=== PATIENT | male | born 1955 | race Caucasian/White ===

== ENCOUNTER 2017-03-02 18:35 | Emergency (ER) | payer OTHER ==
[2017-03-02 18:51] VITALS: BP 138/64; PULSE 90; TEMP 98.1; BMI 28.7
--- NOTE | 2017-03-02 19:15 | PDOC ---
History of Present Illness - General History Source: Patient Exam Limitations: No Limitations - History of Present Illness Initial Comments: 03/02/17 19:23 The patient is a 61 year old male, with a significant past medical history of hypothyroidism (on Synthroid 75mcg daily), dependencies of opacities and k2, Hepatitis C, depression, and asthma, who presents to the emergency department with increasing pain and swelling to his left index finger secondary to getting it crushed in an escalator 2.5 weeks ago. The patient states that he feels as if his finger feels like it is going to explode. As per EMS the pain in his finger is a throbbing and pressure in sensation in nature and is having chills. 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 [employer] Allergies:Ciprofloxacin, Ciprofloxacin HCl, Penicillins, Fish containing products Past surgical history: Cholecystectomy (09/2013) Social history: Current everyday smoker (5 cigarettes per day), Heroin and Marijuana use <Sharron Lockhart - Last Filed: 03/02/17 19:23> <Lukas Kimball - Last Filed: 03/03/17 03:41> - General Chief Complaint: Pain, Acute Stated Complaint: PAIN TO LEFT INDEX FINGER Time Seen by Provider: 03/02/17 19:15 Past History <Sharron Lockhart - Last Filed: 03/02/17 19:23> - Past Medical History Anemia: No Asthma: Yes (no using the resque inhalants ) Cancer: No Cardiac Disorders: No CVA: No COPD: No CHF: No Dementia: No Diabetes: No GI Disorders: No Disorders: No HTN: No Hypercholesterolemia: No Kidney Stones: No Liver Disease: No Suicide Attempt (Hx): No Seizures: No Thyroid Disease: No - Surgical History Abdominal Surgery: No Appendectomy: No Cardiac Surgery: No Cholecystectomy: Yes (09/2013) Lung Surgery: No Neurologic Surgery: No Orthopedic Surgery: No - Reproductive History Testicular Surgery: No - Psycho/Social/Smoking Cessation Hx Anxiety: No Suicidal Ideation: No Smoking History: Current every day smoker Have you smoked in the past 12 months: Yes Number of Cigarettes Smoked Daily: 5 Information on smoking cessation initiated: Yes 'Breaking Loose' booklet given: 03/02/17 Hx Alcohol Use: No Drug/Substance Use Hx: Yes (H/O HEROIN AND MARIJUANA) Substance Use Type: Heroin, Marijuana Hx Substance Use Treatment: Yes <Lukas Kimball - Last Filed: 03/03/17 03:41> - Past Medical History Allergies/Adverse Reactions: Allergies Allergy/AdvReac Type Severity Reaction Status Date / Time ciprofloxacin [From Cipro] AdvReac Rash Verified 03/02/17 18:38 ciprofloxacin HCl AdvReac Rash Verified 03/02/17 18:38 [From Cipro] Fish Containing Products AdvReac Rash Verified 03/02/17 18:38 Penicillins AdvReac Difficulty Verified 03/02/17 18:38 Breathing Home Medications: Ambulatory Orders Levothyroxine [Synthroid -] 75 mcg PO DAILY 09/01/14 Clindamycin [Cleocin -] 300 mg PO Q6H #40 capsule 03/02/17 Review of Systems - Review of Systems Able to Perform ROS?: Yes Comments:: 03/02/17 19:24 GENERAL/CONSTITUTIONAL: +chills No fever. No weakness. HEAD, EYES, EARS, NOSE AND THROAT: No change in vision. No ear pain or discharge. No sore throat. CARDIOVASCULAR: No chest pain or shortness of breath. RESPIRATORY: No cough, wheezing, or hemoptysis. GASTROINTESTINAL: No nausea, vomiting, diarrhea or constipation. GENITOURINARY: No dysuria, frequency, or change in urination. MUSCULOSKELETAL: +Pain and swelling to left index finger No neck or back pain. SKIN: No rash NEUROLOGIC: No headache, vertigo, loss of consciousness, or change in strength/ sensation. ENDOCRINE: No increased thirst. No abnormal weight change. HEMATOLOGIC/LYMPHATIC: No anemia, easy bleeding, or history of blood clots. ALLERGIC/IMMUNOLOGIC: No hives or skin allergy. <Sharron Lockhart - Last Filed: 03/02/17 19:23> *Physical Exam - Vital Signs Last Vital Signs Temp Pulse Resp BP Pulse Ox 98.1 F 90 20 138/64 99 03/02/17 18:37 03/02/17 18:37 03/02/17 18:37 03/02/17 18:37 03/02/17 18:37 - Physical Exam Comments: 03/02/17 19:24 GENERAL: Awake, alert, and fully oriented, in no acute distress HEAD: No signs of trauma EYES: PERRLA, EOMI, sclera anicteric, conjunctiva clear ENT: Auricles normal inspection, hearing grossly normal, nares patent, oropharynx clear without exudates. Moist mucosa NECK: Normal ROM, supple, no lymphadenopathy, JVD, or masses LUNGS: Breath sounds equal, clear to auscultation bilaterally. No wheezes, and no crackles HEART: Regular rate and rhythm, normal S1 and S2, no murmurs, rubs or gallops ABDOMEN: Soft, nontender, normoactive bowel sounds. No guarding, no rebound. No masses EXTREMITIES: +Felon left index finger Normal range of motion. No cords. NEUROLOGICAL: Cranial nerves II through XII grossly intact. Normal speech, normal gait SKIN: Warm, Dry, normal turgor, no rashes or lesions noted. <Sharron Lockhart - Last Filed: 03/02/17 19:23> - Vital Signs Last Vital Signs Temp Pulse Resp BP Pulse Ox 98.1 F 90 20 138/64 99 03/02/17 18:37 03/02/17 18:37 03/02/17 18:37 03/02/17 18:37 03/02/17 18:37 <Lukas Kimball - Last Filed: 03/03/17 03:41> Medical Decision Making - Medical Decision Making 03/03/17 03:39 felon on L index finger soaked in H2O2 incision made along existing scabe on volar surface only scant pus return packed, dressed a/p felon/ cellulitis abx packing out 36 hours <Lukas Kimball - Last Filed: 03/03/17 03:41> *DC/Admit/Observation/Transfer - Attestations Scribe Attestion: 03/02/17 19:25 Documentation prepared by J LUIS Beckman, acting as medical receptionist for Lukas Kimball MD. <Sharron Lockhart - Last Filed: 03/02/17 19:23> <Lukas Kimball - Last Filed: 03/03/17 03:41> Diagnosis at time of Disposition: Felon of finger of left hand - Discharge Dispostion Disposition: HOME Condition at time of disposition: Stable - Prescriptions Prescriptions: Clindamycin [Cleocin -] 300 mg PO Q6H #40 capsule - Patient Instructions Printed Discharge Instructions: DI for Incision and Drainage Additional Instructions: Take motrin as for pain. We left a piece of gauze inside your finger. That should come out Friday. See a doctor then. Fill your antibiotic prescription and take the antibiotics every 6 hours.
[2017-03-02] MEDS ORDERED: LIDOCAINE HCL 2% (20ML MULTI-DOSE VIAL) NR ONE (19:23)
[2017-03-02] MEDS ORDERED: CLINDAMYCIN HCL 150 MG CAPSULE (FP) PO ONE (19:47)
[2017-03-02] MEDS ORDERED: CLINDAMYCIN HCL 150 MG CAPSULE (FP) ONE (19:49)
== END 2017-03-02 20:00 | disposition home or self-care (01) ==
LOC: FER 18:35
PROC: 0H9GXZZ Drainage of Left Hand Skin, External Approach (ICD-10-PCS; principal; 2017-03-02)
DX: L03.012 Cellulitis of left finger (principal); E03.9 Hypothyroidism, unspecified; F11.20 Opioid dependence, uncomplicated; F12.20 Cannabis dependence, uncomplicated; F17.210 Nicotine dependence, cigarettes, uncomplicated; B18.2 Chronic viral hepatitis C; F32.9 Major depressive disorder, single episode, unspecified; J45.909 Unspecified asthma, uncomplicated
CPT/HCPCS: 26010; 99283-25

== ENCOUNTER 2017-03-21 09:05 | Inpatient (IN) | payer OTHER ==
[2017-03-21 11:09] VITALS: BMI 22.3
--- NOTE | 2017-03-21 14:28 | HP ---
COWS - Scale Resting Pulse: 0= [place] 80 or Below Sweatin=Flushed/Facial Moisture Restless Observation: 3= Extraneous Movement Pupil Size: 2= Moderately Dilated Bone or Joint Aches: 2= Severe Diffuse Aches Runny Nose/ Eye Tearin= Runny Nose/Eyes GI Upset > 30mins: 2= Nausea/Diarrhea Tremor Observation: 2= Slight Tremor Visible Yawning Observation: 1= 1-2x During Session Anxiety or Irritability: 2=Irritable/Anxious Goose Flesh Skin: 0=Smooth Skin COWS Score: 18 Admission ROS S - [facility] Chief Complaint: Withdrawal sx. Allergies/Adverse Reactions: Allergies Allergy/AdvReac Type Severity Reaction Status Date / Time ciprofloxacin [From Cipro] AdvReac Rash Verified 03/21/17 13:37 ciprofloxacin HCl AdvReac Rash Verified 03/21/17 13:37 [From Cipro] Fish Containing Products AdvReac Rash Verified 03/21/17 13:37 Penicillins AdvReac Difficulty Verified 03/21/17 13:37 Breathing History of Present Illness: 61 y/o man with a long hx. of drug dependence is admitted for detox. Pt. has been in previous detox,denies significant period drug free. Exam Limitations: No Limitations - Ebola screening Have you traveled outside of the country in the last 21 days: No Have you had contact with anyone from an Ebola affected area: No Have you been sick,other than usual withdrawal symptoms: No Do you have a fever: No - Review of Systems Constitutional: Diaphoresis EENT: reports: Nose Congestion Respiratory: reports: No Symptoms reported Cardiac: reports: No Symptoms Reported GI: reports: Diarrhea, Nausea, Abdominal cramping : reports: No Symptoms Reported Musculoskeletal: reports: Back Pain, Joint Pain, Muscle Pain Integumentary: reports: Sweating Neuro: reports: Tingling, Tremors Endocrine: reports: No Symptoms Reported Hematology: reports: No Symptoms Reported Psychiatric: reports: No Sypmtoms Reported Other Systems: Reviewed and Negative Patient History - Patient Medical History Hx Anemia: No Hx Asthma: Yes Hx Chronic Obstructive Pulmonary Disease (COPD): Yes Hx Cancer: No Hx Cardiac Disorders: No Hx Congestive Heart Failure: No Hx Hypertension: No Hx Hypercholesterolemia: No Hx Pacemaker: No HX Cerebrovascular Accident: No Hx Seizures: No Hx Dementia: No Hx Diabetes: No Hx Gastrointestinal Disorders: No Hx Liver Disease: No Hx Genitourinary Disorders: No Hx Sexually Transmitted Disorders: No Hx Renal Disease (ESRD): No Hx Thyroid Disease: No Hx Human Immunodeficiency Virus (HIV): No Hx Hepatitis C: Yes (No tx. needed) Hx Depression: Yes Hx Suicide Attempt: No Hx Bipolar Disorder: No Hx Schizophrenia: No - Patient Surgical History Past Surgical History: No Hx Neurologic Surgery: No Hx Cataract Extraction: No Hx Cardiac Surgery: No Hx Lung Surgery: No Hx Breast Surgery: No Hx Breast Biopsy: No Hx Abdominal Surgery: No Hx Appendectomy: No Hx Cholecystectomy: Yes (09/2013) Hx Genitourinary Surgery: No Hx Section: No Hx Orthopedic Surgery: Yes (L index fingertip.03/02/17 at [facility]/[place]) Anesthesia Reaction: No - PPD History Previous Implant?: Yes Documented Results: Positive w/o proof Implanted On Prior [facility] Admission?: No Results: positive PPD to be Administered?: No - Smoking Cessation Smoking history: Current every day smoker Have you smoked in the past 12 months: Yes Aproximately how many cigarettes per day: 20 Hx Chewing Tobacco Use: No Initiated information on smoking cessation: Yes 'Breaking Loose' booklet given: 03/21/17 - Substance & Tx. History Hx Alcohol Use: No Hx Substance Use: Yes Substance Use Type: Heroin Hx Substance Use Treatment: Yes (detox) - Substances Abused Heroin Route: Injection Frequency: Daily Amount used: 10 bags Age of first use: 61 Date of Last Use: 03/20/17 Family Disease History - Family Disease History Family Disease History: Diabetes: Grandparent (all alcohol dependence), Mother, Sister, Son, Heart Disease: Mother, CA: Mother, Respiratory: Grandparent, Other : Grandparent, Father, Mother, Brother, Sister, Son, Daughter Admission Physical Exam BHS - Vital Signs Vital Signs: Vital Signs - 24 hr 03/21/17 11:07 Temperature 97.7 F Pulse Rate 74 Respiratory 20 Rate Blood Pressure 125/75 - Physical General Appearance: Yes: Irritable, Sweating, Anxious HEENTM: Yes: Nasal Congestion, Rhinorrhea Respiratory: Yes: Chest Non-Tender, Lungs Clear, Normal Breath Sounds Neck: Yes: Supple Breast: Yes: Breast Exam Deferred Cardiology: Yes: Regular Rhythm, Regular Rate, S1, S2 Abdominal: Yes: Normal Bowel Sounds, Non Tender, Soft Genitourinary: Yes: Within Normal Limits Back: Yes: Within Normal Limits Musculoskeletal: Yes: full range of Motion Extremities: Yes: Tremors Neurological: Yes: Fully Oriented, Alert Integumentary: Yes: Diaphoresis Lymphatic: Yes: Within Normal Limits - Diagnostic (1) Opioid dependence with withdrawal Current Visit: Yes Status: Acute (2) Asthma with COPD Current Visit: Yes Status: Chronic (3) Cannabis dependence Current Visit: Yes Status: Chronic (4) Hypothyroidism Current Visit: Yes Status: Acute Qualifiers: Hypothyroidism type: acquired Qualified Code(s): E03.9 - Hypothyroidism, unspecified (5) Amputation of left index finger Current Visit: Yes Status: Acute Comment: distal tip Cleared for Admission [facility] - Detox or Rehab [facility] Level of Care: Medically Managed Detox Regimen/Protocol: Methadone [facility] Breath Alcohol Content Breath Alcohol Content: 0 Urine Drug Screen - Results Drug Screen Negative: No Urine Drug Screen Results: THC-Marijuana, OPI-Opiates
[2017-03-21] MEDS ORDERED: diphenhydrAMINE HCL 50 MG CAPSULE PO PRN (14:49)
[2017-03-21] MEDS ORDERED: P-EPHED 60MG/TRIPROLIDI 2.5MG TABLET PO PRN (14:49)
[2017-03-21] MEDS ORDERED: LOPERAMIDE HCL 2 MG CAPSULE PO PRN (14:49)
[2017-03-21] MEDS ORDERED: MAG HYDROX/AL HYDROX/SIMETH 30 ML UNIT-DOSE CUP PO PRN (14:49)
[2017-03-21] MEDS ORDERED: MENTHOL/PHENOL 1 EACH UD MM PRN (14:49)
[2017-03-21] MEDS ORDERED: NICOTINE POLACRILEX 2 MG GUM BUC PRN (14:49)
[2017-03-21] MEDS ORDERED: guaiFENesin/D-METHORPHAN HB 10 ML UNIT-DOSE CUPS PO PRN (14:49)
[2017-03-21] MEDS ORDERED: MAGNESIUM CITRATE 300 ML BOTTLE PO PRN (14:49)
[2017-03-21] MEDS ORDERED: MAGNESIUM HYDROX 2400MG/30ML ORAL SUSPENSION 30 ML CUP PO PRN (14:49)
[2017-03-21] MEDS ORDERED: LEVOTHYROXINE NA 150 MCG TABLET PO SCH (15:00)
[2017-03-21] MEDS ORDERED: cloNIDine HCL 0.1 MG TABLET PO ONE (15:20)
[2017-03-21] MEDS ORDERED: METHADONE HCL 10 MG TABLET (FOR DETOX USE ONLY) PO ONE ×2 (15:21→23:00)
[2017-03-21] MEDS ORDERED: LEVOTHYROXINE NA 100 MCG TABLET (FP) ONE (15:45)
[2017-03-21] MEDS ORDERED: LEVOTHYROXINE NA 25 MCG TABLET (FP) ONE (15:45)
[2017-03-21] MEDS: diazePAM 5 MG TABLET PO PRN ×2 (15:48→22:29)
[2017-03-21] MEDS: LEVOTHYROXINE 100 MCG, LEVOTHYROXINE 50 MCG PO SCH (15:48)
[2017-03-21] MEDS: NICOTINE 21 MG/24 HOURS TOPICAL PATCH TD SCH (15:49)
[2017-03-21] MEDS: CYCLOBENZAPRINE HCL 10 MG TABLET (FP) PO SCH ×2 (15:49→22:29)
[2017-03-21 20:15] LABS: URINE APPEARANCE CLEAR; URINE BILIRUBIN NEGATIVE (NEGATIVE); URINE BLOOD NEGATIVE (NEGATIVE); URINE COLOR YELLOW; URINE GLUCOSE (UA) NEGATIVE (NEGATIVE); URINE KETONE NEGATIVE (NEGATIVE); URINE LEUK ESTERASE NEGATIVE (NEGATIVE); URINE NITRITE NEGATIVE (NEGATIVE); URINE PROTEIN NEGATIVE (NEGATIVE); URINE UROBILINOGEN NEGATIVE E.U./dl (0.2-1.0)
[2017-03-21] MEDS: IBUPROFEN 400 MG TABLET (FP) PO PRN (20:30)
[2017-03-21] MEDS: THIAMINE HCL 100 MG TABLET (FP) PO SCH (22:28)
[2017-03-21] MEDS: cloNIDine HCL 0.1 MG TABLET PO SCH (22:29)
[2017-03-22] MEDS ORDERED: LEVOTHYROXINE NA 25 MCG TABLET (FP) ONE (05:18)
[2017-03-22] MEDS ORDERED: LEVOTHYROXINE NA 100 MCG TABLET (FP) ONE (05:18)
[2017-03-22] MEDS: diazePAM 5 MG TABLET PO PRN ×4 (06:03→22:44)
[2017-03-22] MEDS: LEVOTHYROXINE 100 MCG, LEVOTHYROXINE 50 MCG PO SCH (06:04)
[2017-03-22] MEDS: CYCLOBENZAPRINE HCL 10 MG TABLET (FP) PO SCH ×3 (06:04→22:45)
[2017-03-22] MEDS ORDERED: METHADONE HCL 10 MG TABLET (FOR DETOX USE ONLY) PO ONE (10:00)
[2017-03-22] MEDS: PRENATAL VITAMINS W/ FOLIC ACID TABLET (FP) PO SCH (10:30)
[2017-03-22] MEDS: cloNIDine HCL 0.1 MG TABLET PO SCH ×2 (10:30→22:45)
[2017-03-22] MEDS: NICOTINE 21 MG/24 HOURS TOPICAL PATCH TD SCH (10:31)
[2017-03-22 10:47] LABS: MCH 30.3 pg (25.7-33.7); MCHC 33.6 g/dl (32.0-35.9); MEAN CELL VOLUME 90.3 fl (80-96); MEAN PLT VOLUME 8.4 fl (7.5-11.1); PLATELET COUNT 221 K/MM3 (134-434); WHITE BLOOD COUNT 5.4 K/mm3 (4.0-10.0)
[2017-03-22 10:48] LABS: ALBUMIN 3.5 g/dl (3.4-5.0); ANION GAP 7 (8-16); CO2 28 mmol/L (21-32); GLUCOSE,RANDOM 94 mg/dL (74-106); SGOT/AST 20 U/L (15-37); SGPT/ALT 17 U/L (12-78)
[2017-03-22 10:59] LABS: ALK PHOS 72 U/L (45-117); BILIRUBIN,TOTAL 0.3 mg/dL (0.2-1.0); CALCIUM 9.1 mg/dL (8.5-10.1); COCKROFT - GAULT 106.87; CREATININE 0.8 mg/dL (0.7-1.3); TOT PROT 6.2 g/dl (6.4-8.2)
[2017-03-22] MEDS: ACETAMINOPHEN 325 MG TABLET (FP) PO PRN (12:54)
--- NOTE | 2017-03-22 13:44 | PN ---
S COWS - Scale Resting Pulse: 0= [place] 80 or Below Sweatin=Flushed/Facial Moisture Restless Observation: 3= Extraneous Movement Pupil Size: 0= Normal to Room Light Bone or Joint Aches: 2= Severe Diffuse Aches Runny Nose/ Eye Tearin= Nasal Congestion GI Upset > 30mins: 1= Stomach Cramp Tremor Observation of Outstretched Hands: 2= Slight Tremor Visible Yawning Observation: 1= 1-2x During Session Anxiety or Irritability: 2=Irritable/Anxious Goose Flesh Skin: 3=Piloerection COWS Score: 17 BHS Progress Note (SOAP) Subjective: anxiety, irritability,sweats and painful left index finger Objective: 03/22/17 13:42 Vital Signs - 8 hr 03/22/17 03/22/17 06:32 10:31 Temperature 96.1 F L 95.8 F L Pulse Rate 63 87 Respiratory 20 20 Rate Blood Pressure 143/83 123/76 Laboratory Last Values WBC 5.4 K/mm3 (4.0-10.0) D 03/22/17 06:00 RBC 4.32 M/mm3 (4.00-5.60) 03/22/17 06:00 Hgb 13.1 GM/dL (11.7-16.9) D 03/22/17 06:00 Hct 39.0 % (35.4-49) D 03/22/17 06:00 MCV 90.3 fl (80-96) 03/22/17 06:00 MCHC 33.6 g/dl (32.0-35.9) 03/22/17 06:00 RDW 16.0 % (11.9-15.9) H 03/22/17 06:00 Plt Count 221 K/MM3 (134-434) 03/22/17 06:00 MPV 8.4 fl (7.5-11.1) 03/22/17 06:00 Sodium 140 mmol/L (136-145) 03/22/17 06:00 Potassium 4.5 mmol/L (3.5-5.1) 03/22/17 06:00 Chloride 105 mmol/L (98-107) 03/22/17 06:00 Carbon Dioxide 28 mmol/L (21-32) 03/22/17 06:00 Anion Gap 7 (8-16) L 03/22/17 06:00 BUN 20 mg/dL (7-18) H D 03/22/17 06:00 Creatinine 0.8 mg/dL (0.7-1.3) 03/22/17 06:00 Creat Clearance w eGFR > 60 (>60) 03/22/17 06:00 Random Glucose 94 mg/dL (74-106) 03/22/17 06:00 Calcium 9.1 mg/dL (8.5-10.1) 03/22/17 06:00 Total Bilirubin 0.3 mg/dL (0.2-1.0) D 03/22/17 06:00 AST 20 U/L (15-37) 03/22/17 06:00 ALT 17 U/L (12-78) 03/22/17 06:00 Alkaline Phosphatase 72 U/L (45-117) D 03/22/17 06:00 Total Protein 6.2 g/dl (6.4-8.2) L 03/22/17 06:00 Albumin 3.5 g/dl (3.4-5.0) 03/22/17 06:00 Urine Color Yellow 03/21/17 19:35 Urine Appearance Clear 03/21/17 19:35 Urine pH 5.0 (5.0-8.0) D 03/21/17 19:35 Ur Specific [place] 1.025 (1.005-1.025) 03/21/17 19:35 Urine Protein Negative (NEGATIVE) 03/21/17 19:35 Urine Glucose (UA) Negative (NEGATIVE) 03/21/17 19:35 Urine Ketones Negative (NEGATIVE) 03/21/17 19:35 Urine Blood Negative (NEGATIVE) 03/21/17 19:35 Urine Nitrite Negative (NEGATIVE) 03/21/17 19:35 Urine Bilirubin Negative (NEGATIVE) 03/21/17 19:35 Urine Urobilinogen Negative E.U./dl (0.2-1.0) 03/21/17 19:35 Ur Leukocyte Esterase Negative (NEGATIVE) 03/21/17 19:35 labs noted Assessment: 03/22/17 13:43 withdrawal sx s/p left index finger injury, sutures intact Plan: continue detox continue pain management
[2017-03-22] MEDS: THIAMINE HCL 100 MG TABLET (FP) PO SCH (22:44)
[2017-03-22] MEDS: hydrOXYzine PAMOATE 50 MG CAPSULE (FP) PO PRN (22:48)
[2017-03-23] MEDS ORDERED: LEVOTHYROXINE NA 25 MCG TABLET (FP) ONE (04:14)
[2017-03-23] MEDS ORDERED: LEVOTHYROXINE NA 100 MCG TABLET (FP) ONE (04:14)
[2017-03-23] MEDS: CYCLOBENZAPRINE HCL 10 MG TABLET (FP) PO SCH ×3 (05:51→22:06)
[2017-03-23] MEDS: diazePAM 5 MG TABLET PO PRN ×4 (05:52→22:06)
[2017-03-23] MEDS: LEVOTHYROXINE 100 MCG, LEVOTHYROXINE 50 MCG PO SCH (07:43)
[2017-03-23] MEDS ORDERED: METHADONE HCL 5 MG TABLET (FOR DETOX USE ONLY) PO ONE (10:00)
[2017-03-23] MEDS: PRENATAL VITAMINS W/ FOLIC ACID TABLET (FP) PO SCH (10:22)
[2017-03-23] MEDS: NICOTINE 21 MG/24 HOURS TOPICAL PATCH TD SCH (10:22)
[2017-03-23] MEDS: cloNIDine HCL 0.1 MG TABLET PO SCH ×2 (10:22→22:06)
[2017-03-23] MEDS: ACETAMINOPHEN 325 MG TABLET (FP) PO PRN (13:11)
--- NOTE | 2017-03-23 16:09 | PN ---
S COWS - Scale Resting Pulse: 1= [place] 81-100 Sweatin=Flushed/Facial Moisture Restless Observation: 3= Extraneous Movement Pupil Size: 1= Pupils >than Normal Bone or Joint Aches: 2= Severe Diffuse Aches Runny Nose/ Eye Tearin= Nasal Congestion GI Upset > 30mins: 3= Vomiting/Diarrhea Tremor Observation of Outstretched Hands: 2= Slight Tremor Visible Yawning Observation: 1= 1-2x During Session Anxiety or Irritability: 2=Irritable/Anxious Goose Flesh Skin: 0=Smooth Skin COWS Score: 18 BHS Progress Note (SOAP) Subjective: Diarrhea, sweating, nausea, anxious Objective: 03/23/17 16:07 Last Vital Signs Temp Pulse Resp BP Pulse Ox 96.2 F L 85 20 116/74 03/23/17 13:50 03/23/17 13:50 03/23/17 13:50 03/23/17 13:50 Laboratory Tests 03/21/17 03/22/17 03/22/17 19:35 06:00 06:00 WBC 5.4 D RBC 4.32 Hgb 13.1 D Hct 39.0 D MCV 90.3 MCHC 33.6 RDW 16.0 H Plt Count 221 MPV 8.4 Sodium 140 Potassium 4.5 Chloride 105 Carbon Dioxide 28 Anion Gap 7 L BUN 20 H D Creatinine 0.8 Creat Clearance w eGFR > 60 Random Glucose 94 Calcium 9.1 Total Bilirubin 0.3 D AST 20 ALT 17 Alkaline Phosphatase 72 D Total Protein 6.2 L Albumin 3.5 Urine Color Yellow Urine Appearance Clear Urine pH 5.0 D Ur Specific [place] 1.025 Urine Protein Negative Urine Glucose (UA) Negative Urine Ketones Negative Urine Blood Negative Urine Nitrite Negative Urine Bilirubin Negative Urine Urobilinogen Negative Ur Leukocyte Esterase Negative RPR Titer 03/22/17 06:00 WBC RBC Hgb Hct MCV MCHC RDW Plt Count MPV Sodium Potassium Chloride Carbon Dioxide Anion Gap BUN Creatinine Creat Clearance w eGFR Random Glucose Calcium Total Bilirubin AST ALT Alkaline Phosphatase Total Protein Albumin Urine Color Urine Appearance Urine pH Ur Specific [place] Urine Protein Urine Glucose (UA) Urine Ketones Urine Blood Urine Nitrite Urine Bilirubin Urine Urobilinogen Ur Leukocyte Esterase RPR Titer Nonreactive Labs noted: BUN 20 Assessment: 03/23/17 16:08 Withdrawal symptoms Noted with azotemia Plan: Continue detox Azotemia: encouraged to drink lots of water
[2017-03-23] MEDS: IBUPROFEN 400 MG TABLET (FP) PO PRN (21:09)
[2017-03-23] MEDS: THIAMINE HCL 100 MG TABLET (FP) PO SCH (22:06)
--- NOTE | 2017-03-23 23:24 | EKG ---
Test Reason : Blood Pressure : / mmHG Vent. Rate : 074 BPM Atrial Rate : 074 BPM P-R Int : 148 ms QRS Dur : 084 ms QT Int : 422 ms P-R-T Axes : 050 053 062 degrees QTc Int : 468 ms NORMAL SINUS RHYTHM NORMAL ECG NO PREVIOUS ECGS AVAILABLE Confirmed by DAGO YORK MD ([id number]) on 03/23/2017 11:23:27 PM Referred By: Confirmed By:DAGO YORK MD
[2017-03-24] MEDS ORDERED: LEVOTHYROXINE NA 25 MCG TABLET (FP) ONE (03:56)
[2017-03-24] MEDS ORDERED: LEVOTHYROXINE NA 100 MCG TABLET (FP) ONE (03:56)
[2017-03-24] MEDS: diazePAM 5 MG TABLET PO PRN ×2 (05:16→12:33)
[2017-03-24] MEDS: CYCLOBENZAPRINE HCL 10 MG TABLET (FP) PO SCH ×3 (05:16→22:22)
[2017-03-24] MEDS: LEVOTHYROXINE 100 MCG, LEVOTHYROXINE 50 MCG PO SCH (07:15)
[2017-03-24] MEDS ORDERED: METHADONE HCL 5 MG TABLET (FOR DETOX USE ONLY) PO ONE (10:00)
[2017-03-24] MEDS: cloNIDine HCL 0.1 MG TABLET PO SCH ×2 (10:21→22:22)
[2017-03-24] MEDS: NICOTINE 21 MG/24 HOURS TOPICAL PATCH TD SCH (10:21)
[2017-03-24] MEDS: PRENATAL VITAMINS W/ FOLIC ACID TABLET (FP) PO SCH (10:21)
--- NOTE | 2017-03-24 14:43 | PN ---
[facility] Progress Note (SOAP) Subjective: Anxious, irritable, sweating, interrupted sleep Objective: 03/24/17 14:37 Last Vital Signs Temp Pulse Resp BP Pulse Ox 96.5 F L 85 18 125/80 03/24/17 13:49 03/24/17 13:49 03/24/17 13:49 03/24/17 13:49 PE: Noted with 6 sutures to left index finger (upper part of index finger partially amputated). Patient stated he was on an escalator at [facility] and his finger got stucked to the escalator so he went to his MD who failed to order xray. Patient stated he later went to the ER and had fx and bone infection in which the upper part of his finger had to be amputated and the finger remained swollen since the incident. Patient told financial underwriter the sutures have been in for 11 days then later told financial underwriter it has been in for 14 days. Laboratory Tests 03/21/17 03/22/17 03/22/17 19:35 06:00 06:00 WBC 5.4 D RBC 4.32 Hgb 13.1 D Hct 39.0 D MCV 90.3 MCHC 33.6 RDW 16.0 H Plt Count 221 MPV 8.4 Sodium 140 Potassium 4.5 Chloride 105 Carbon Dioxide 28 Anion Gap 7 L BUN 20 H D Creatinine 0.8 Creat Clearance w eGFR > 60 Random Glucose 94 Calcium 9.1 Total Bilirubin 0.3 D AST 20 ALT 17 Alkaline Phosphatase 72 D Total Protein 6.2 L Albumin 3.5 Urine Color Yellow Urine Appearance Clear Urine pH 5.0 D Ur Specific [place] 1.025 Urine Protein Negative Urine Glucose (UA) Negative Urine Ketones Negative Urine Blood Negative Urine Nitrite Negative Urine Bilirubin Negative Urine Urobilinogen Negative Ur Leukocyte Esterase Negative RPR Titer 03/22/17 06:00 WBC RBC Hgb Hct MCV MCHC RDW Plt Count MPV Sodium Potassium Chloride Carbon Dioxide Anion Gap BUN Creatinine Creat Clearance w eGFR Random Glucose Calcium Total Bilirubin AST ALT Alkaline Phosphatase Total Protein Albumin Urine Color Urine Appearance Urine pH Ur Specific [place] Urine Protein Urine Glucose (UA) Urine Ketones Urine Blood Urine Nitrite Urine Bilirubin Urine Urobilinogen Ur Leukocyte Esterase RPR Titer Nonreactive Labs noted Assessment: 03/24/17 14:37 Withdrawal symptoms Noted with 6 sutures to upper part of left index finger; amputated area healed, finger is swollen. stumped area cleansed with betadine pad and 2 sutures removed. Unable to remove the other 4 sutures as they are embedded in the skin. No redness or discharge noted. Plan: Continue detox Partial amputation of left index finger: 4 sutures need to be removed (sutures in x 14 days as per patient). Will discuss with medical anthropology director regarding removal of remaining sutures. Patient may need transfer to ER to have the other 4 sutures removed.
[2017-03-24] MEDS: IBUPROFEN 400 MG TABLET (FP) PO PRN (17:28)
[2017-03-24] MEDS: THIAMINE HCL 100 MG TABLET (FP) PO SCH (22:22)
[2017-03-24] MEDS: hydrOXYzine PAMOATE 50 MG CAPSULE (FP) PO PRN (22:23)
[2017-03-25] MEDS ORDERED: LEVOTHYROXINE NA 25 MCG TABLET (FP) ONE (01:39)
[2017-03-25] MEDS ORDERED: LEVOTHYROXINE NA 100 MCG TABLET (FP) ONE (01:40)
[2017-03-25] MEDS: CYCLOBENZAPRINE HCL 10 MG TABLET (FP) PO SCH ×3 (05:30→21:57)
[2017-03-25] MEDS: LEVOTHYROXINE 100 MCG, LEVOTHYROXINE 50 MCG PO SCH (07:20)
[2017-03-25] MEDS ORDERED: METHADONE HCL 10 MG TABLET (FOR DETOX USE ONLY) PO ONE (10:00)
[2017-03-25] MEDS: cloNIDine HCL 0.1 MG TABLET PO SCH ×2 (10:23→21:57)
[2017-03-25] MEDS: PRENATAL VITAMINS W/ FOLIC ACID TABLET (FP) PO SCH (10:23)
[2017-03-25] MEDS: hydrOXYzine PAMOATE 50 MG CAPSULE (FP) PO PRN ×3 (10:23→21:57)
[2017-03-25] MEDS: NICOTINE 21 MG/24 HOURS TOPICAL PATCH TD SCH (10:24)
--- NOTE | 2017-03-25 11:16 | PN ---
S Progress Note (SOAP) Subjective: ANXIETY, SWEATS, BODY ACHES. Objective: 03/25/17 11:14 Vital Signs Temperature 96.9 F L 03/25/17 09:19 Pulse Rate 92 H 03/25/17 09:19 Respiratory Rate 20 03/25/17 09:19 Blood Pressure 108/67 03/25/17 09:19 O2 Sat by Pulse Oximetry (%) RIGHT INDEX FINGER 4 STITCHES REMOVED WITH CARE AND PATIENCE DUE TO SCAB BED AND DRY SCALY SKIN OVER STITCHES. STUMP CLEAN WITH NO DRAINAGE. NO REDNESS OR PATHOLOGICAL SWELLING NOTED. SLIGHT PAIN ON REMOVAL PROCESS OTHERWISE NO CONSTANT PAIN EXPRESSED. Assessment: 03/25/17 11:16 DANIEL [place] Plan: CONTINUE DETOX BACITRACIN OINTMENT TO AFFECTED AREA WITH GUAZE COVER.
[2017-03-25] MEDS: THIAMINE HCL 100 MG TABLET (FP) PO SCH (21:57)
[2017-03-26] MEDS ORDERED: LEVOTHYROXINE NA 25 MCG TABLET (FP) ONE (04:03)
[2017-03-26] MEDS ORDERED: LEVOTHYROXINE NA 100 MCG TABLET (FP) ONE (04:03)
[2017-03-26] MEDS: CYCLOBENZAPRINE HCL 10 MG TABLET (FP) PO SCH (05:33)
[2017-03-26] MEDS ORDERED: METHADONE HCL 5 MG TABLET (FOR DETOX USE ONLY) PO ONE (06:00)
[2017-03-26] MEDS: LEVOTHYROXINE 100 MCG, LEVOTHYROXINE 50 MCG PO SCH (07:34)
[2017-03-26] MEDS: PRENATAL VITAMINS W/ FOLIC ACID TABLET (FP) PO SCH (09:16)
[2017-03-26] MEDS: hydrOXYzine PAMOATE 50 MG CAPSULE (FP) PO PRN (09:16)
[2017-03-26] MEDS: cloNIDine HCL 0.1 MG TABLET PO SCH (09:16)
[2017-03-26] MEDS: NICOTINE 21 MG/24 HOURS TOPICAL PATCH TD SCH (09:17)
[2017-03-26 09:33] VITALS: BP 118/76; PULSE 98; TEMP 96.3
--- NOTE | 2017-03-26 11:54 | DS ---
[facility] Detox Discharge Summary Admission Date: 03/21/17 Discharge Date: 03/26/17 - History Present History: Opioid Dependence Additional Comments: DETOX COMPLETED. ALERT O X 3 . NAD. Pertinent Past History: S/P LEFT INDEX FINGER AMPUTATION HYPOTHYROIDISM ASTHMA COPD OSTEOARTHRITIS - Physical Exam Results Vital Signs: Vital Signs Temperature 96.3 F L 03/26/17 09:32 Pulse Rate 98 H 03/26/17 09:32 Respiratory Rate 20 03/26/17 09:32 Blood Pressure 118/76 03/26/17 09:32 O2 Sat by Pulse Oximetry (%) Pertinent Admission Physical Exam Findings: WITHDRAWAL SX LEFT INDEX FINGER AMPUTATION WITH [address] - Treatment Hospital Course: Detox Protocol Followed, Detoxed Safely, Responded well, Discharged Condition Good - Medication Discharge Medications: Ambulatory Orders Levothyroxine [Synthroid -] 150 mcg PO DAILY 03/21/17 - Diagnosis (1) Amputation of left index finger Status: Acute (2) Hypothyroidism Status: Chronic Qualifiers: Hypothyroidism type: acquired Qualified Code(s): E03.9 - Hypothyroidism, unspecified (3) Opioid dependence with withdrawal Status: Acute (4) Asthma with COPD Status: Chronic (5) Chronic LBP Status: Chronic Qualifiers: Back pain laterality: unspecified (6) Nicotine dependence Status: Acute Qualifiers: Nicotine product type: cigarettes Substance use status: in withdrawal Qualified Code(s): F17.213 - Nicotine dependence, cigarettes, with withdrawal (7) Osteoarthritis Status: Chronic Qualifiers: Laterality: unspecified laterality - AMA Did Patient Leave Against Medical Advice: No
== END 2017-03-26 10:20 | disposition home or self-care (01) | DRG 773 ==
LOC: YASAS 09:05 → Y3N 14:06
PROVIDERS: ADMIT Internal Medicine; ATTEND Internal Medicine
PROC: HZ2ZZZZ Detoxification Services for Substance Abuse Treatment (ICD-10-PCS; principal; 2017-03-26)
DX: F11.20 Opioid dependence, uncomplicated (principal); F12.20 Cannabis dependence, uncomplicated; F17.210 Nicotine dependence, cigarettes, uncomplicated; J45.909 Unspecified asthma, uncomplicated; J44.9 Chronic obstructive pulmonary disease, unspecified; M32.9 Systemic lupus erythematosus, unspecified; B18.2 Chronic viral hepatitis C; Z89.022 Acquired absence of left finger(s); Z59.0 Homelessness
CPT/HCPCS: 36415; 71020-TC; 80053; 81003; 85027; 86593; 93005; 93010